=== PATIENT | male | born 2000 | race Caucasian/White ===

== ENCOUNTER 2019-03-15 16:38 | Emergency (ER) | payer MEDICAID, OTHER ==
[~2019-03-15] VITALS: Ht 175.3 cm; Wt 64.5 kg
[2019-03-15] MEDS ORDERED: NO HOME MEDS (17:15)
[2019-03-15 17:28] LABS: BASOPHILS % (AUTO) 0.7 % (0-1); EOSINOPHILS # (AUTO) 0.1 X10'3 (0-0.9); EOSINOPHILS % (AUTO) 2.3 % (0-6); HEMATOCRIT 48.7 % (42.0-52.0); HEMOGLOBIN 17.2 g/dl (14.0-17.9); LYMPHOCYTES # (AUTO) 1.5 X10'3 (1.1-4.8); LYMPHOCYTES % (AUTO) 36.9 % (21-51); MEAN CORPUSCULAR HEMOGLOBIN 31.6 PG (27.0-31.0); MEAN CORPUSCULAR HGB CONC 35.3 g/dL (33.0-36.5); MEAN CORPUSCULAR VOLUME 89.6 FL (78-98); MEAN PLATELET VOLUME 9.4 FL (7.4-10.4); MONOCYTES # (AUTO) 0.3 X10'3 (0-0.9); MONOCYTES % (AUTO) 8.1 % (2-12); NEUTROPHILS # (AUTO) 2.1 X10'3 (1.8-7.7); PLATELET COUNT 197 X10'3 (140-440); RED BLOOD COUNT 5.43 X10'6 (4.70-6.10); WHITE BLOOD COUNT 4.1 X10'3 (4.5-11.0)
[2019-03-15 17:36] LABS: ALANINE AMINOTRANSFERASE 20 U/L (12-78); ALBUMIN 4.8 G/DL (3.4-5.0); ALBUMIN/GLOBULIN RATIO 1.7 (1.1-1.5); ALKALINE PHOSPHATASE 40 IU/L (46-116); ANION GAP 11 (8-16); ASPARTATE AMINO TRANSFERASE 15 U/L (10-37); BLOOD UREA NITROGEN 14 MG/DL (7-18); BUN/CREATININE RATIO 15.7 (5.4-32.0); CALCIUM 9.6 MG/DL (8.5-10.1); CHLORIDE 104 MMOL/L (99-107); CREATININE 0.89 MG/DL (0.60-1.10); GLUCOSE 102 MG/DL (70-104); POTASSIUM 3.9 MMOL/L (3.5-5.1); SODIUM 140 MMOL/L (135-145); TOTAL CARBON DIOXIDE 24.7 MMOL/L (24-32); TOTAL PROTEIN 7.7 G/DL (6.4-8.2); eGFR > 90 ML/MIN
[2019-03-15 17:45] LABS: ETHANOL < 0.010 GM/DL (0.0-0.010)
[2019-03-15 17:56] LABS: URINE AMPHETAMINE SCREEN NEGATIVE (Neg); URINE BARBITUATE SCREEN NEGATIVE (Neg); URINE BENZODIAZEPINES SCREEN NEGATIVE (Neg); URINE CANNABINOID SCREEN POSITIVE (Neg); URINE COCAINE SCREEN NEGATIVE (Neg); URINE METHADONE SCREEN NEGATIVE (Neg); URINE OPIATE SCREEN NEGATIVE (Neg); URINE PHENCYCLIDINE SCREEN NEGATIVE (Neg)
--- NOTE | 2019-03-15 18:35 | NUR ---
Recieved report from [place] Georges. Pt. ambulated to room from main ED 05. Pt. calm and cooperative. Oriented pt. to bathroom and plan of care.
--- NOTE | 2019-03-15 19:44 | NUR ---
pt. given meal. consumed about 50%. expressing that he is stressed and wants to go home. called for family in lobby but not there. pt. trying to call his mother but could not dt long distance number. Pt is distraught at having to stay overnight and states that he did not want to commit suicide that it was just an expression. Also admits to marajuana use and stress causing him to be unable to talk earlier.
--- NOTE | 2019-03-15 20:15 | NUR ---
Pt faxed to [facility]. Confirmed receipt of packet with Gene @ [facility] office.
--- NOTE | 2019-03-15 20:28 | NUR ---
call from pts. mother, Jacqueline Mohr, phone #[phone]. Inquiring about status of pt. and when she could come pick him up. Informed her of plan of care and awaiting psych consult.
--- NOTE | 2019-03-16 02:00 | NUR ---
PATIENT LYING ON RIGHT SIDE, EYES CLOSED, EQUAL RISE AND FALL OF CHEST. PATIENT HAS NOT WOKE UP SINCE COMING OVER TO OVERFLOW
--- NOTE | 2019-03-16 04:00 | NUR ---
PATIENT EYES CLOSED LYING ON BACK
[2019-03-16 05:30] VITALS: BP 122/66
--- NOTE | 2019-03-16 07:57 | NUR ---
PATIENT LYING ON LEFT SIDE, EYES CLOSED, EQUAL RISE AND FALL OF CHEST.
--- NOTE | 2019-03-16 08:08 | NUR ---
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
== END 2019-03-16 08:39 | disposition home or self-care (01) ==
LOC: ER 16:39
DX: F32.9 Major depressive disorder, single episode, unspecified (principal); F41.9 Anxiety disorder, unspecified
CPT/HCPCS: 36415; 80053; 80305; 80320; 82948; 84443; 85025; 99284